=== PATIENT | male | born 1990 | race Caucasian/White ===

== ENCOUNTER 2018-10-25 15:35 | Emergency (ER) | payer MEDICAID ==
[~2018-10-25] VITALS: Ht 177.8 cm; Wt 81.0 kg
[2018-10-25 16:16] VITALS: BP 154/72
== END 2018-10-25 16:56 ==
LOC: EDBD 15:35 → ER 15:35
DX: S40.022A Contusion of left upper arm, initial encounter (principal); F23 Brief psychotic disorder; F41.9 Anxiety disorder, unspecified; Z59.0 Homelessness; W19.XXXA Unspecified fall, initial encounter; Y93.89 Activity, other specified; Y92.89 Other specified places as the place of occurrence of the external cause; Y99.9 Unspecified external cause status
CPT/HCPCS: 73060; 99284